=== PATIENT | male | born 1950 | race Hispanic/Latino ===

== ENCOUNTER 2017-05-20 13:23 | Outpatient (CLI) | payer MEDICARE ==
--- NOTE | 2017-05-20 15:26 | XRay Report ---
Standing right knee: Pain. There is a total knee replacement. The femoral component appears well seated with no lucency. The tibial component demonstrates a thin lucency below the cement line on the lateral side. There is a small suprapatellar effusion. No soft tissue swelling identified. The findings are not otherwise remarkable. Impression: Questionable loosening of tibial component. Small effusion.
== END 2017-05-20 13:24 | disposition home or self-care (01) ==
LOC: SPVIMAG 13:23
PROVIDERS: ATTEND Orthopaedic Surgery Sports Medicine
DX: M25.461 Effusion, right knee (principal); M25.561 Pain in right knee; Z96.651 Presence of right artificial knee joint